=== PATIENT | male | born 1955 | race Caucasian/White ===

== ENCOUNTER → 2017-01-13 | Day surgery (SDC) | payer BC ==
[~2017-01-13] VITALS: Ht 167.6 cm; Wt 59.0 kg
[~2017-01-13] MED LIST: BUPIVACAINE/EPIN 0.25% 30 ML VIAL As Ordered ONE; BUPIVACAINE/EPIN 0.25% 30 ML VIAL XX ONE; GLYCOPYRROLATE INJ 0.2 MG/ML 2 ML VIAL As Ordered ONE; HYDROmorphone HCL 1 MG/ML SYRINGE (J1170) IV PRN; HYDROmorphone HCL 2 MG/ML 1ML VIAL (J1170) As Ordered ONE; KETOROLAC 30 MG/ML VIAL (J1885) IV SCH; KETOROLAC 60 MG/2 ML VIAL (J1885) As Ordered ONE; LIDOCAINE 2% INJ 100 MG/5 ML SDV (FOR ANES.) As Ordered ONE; LR 1,000 ML IV SCH; MIDAZOLAM INJ 2 MG/2 ML VIAL (J2250) As Ordered ONE; MORPHINE 2 MG/ML 1ML SYRINGE IV PRN; NEOSTIGMINE 1MG/ML 5 ML SYRINGE (J2710) As Ordered ONE; NORCO, ANEXSIA 5/325MG TABLET (HYDROcodone/ACETAMINOPHEN) PO PRN; ONDANSETRON 4MG/2ML VIAL (J2405) As Ordered ONE; ONDANSETRON 4MG/2ML VIAL (J2405) IV PRN; PERCOCET 5MG/325MG TAB PO PRN; PHENYLephrine HCL 500 MCG/5 ML (100MCG/ML) SYRINGE (J2370) As Ordered ONE; PROPOFOL 500 MG/50 ML VIAL As Ordered ONE; SUGAMMADEX SODIUM 500 MG/5 ML VIAL (BRIDION) As Ordered ONE; ceFAZolin SOD 1 GM in D5W MINI-BAG PLUS 50 ML IV ONE; dexameTHASONE 4 MG/ML 1ML VIAL (J1100) As Ordered ONE; ePHEDrine SULFATE 25 MG/5 ML(5MG/ML) SYRINGE As Ordered ONE; fentaNYL 100 MCG/2 ML INJECTION (J3010) As Ordered ONE; fentaNYL 100 MCG/2 ML INJECTION (J3010) IV PRN
--- NOTE | 2017-01-13 11:51 | RO ---
DATE OF PROCEDURE: 01/13/2017 PREOPERATIVE DIAGNOSIS: Right inguinal hernia. POSTOPERATIVE DIAGNOSIS: Right femoral hernia. PROCEDURE: Laparoscopic right inguinal/femoral hernia with 3-D Max mesh, (TEPP). SURGEON: Maged Kumar MD [employer]ET [employer]LLER OPERATOR: ANESTHESIA: General endotracheal anesthesia. ESTIMATED BLOOD LOSS: Minimal. FLUIDS: Crystalloid. BRIEF PROCEDURE SUMMARY: The patient was brought to the operating room and was given general anesthesia. After adequate anesthesia and preoperative antibiotics were given, the patient was prepped and draped in sterile fashion. Next, a periumbilical incision was made with skin knife. Blunt dissection was carried down to fascia. Fascia was incised longitudinally with electrocautery and the rectus muscle was incised longitudinally and retracted laterally with finger dissection posterior to the rectus muscle and anterior to the posterior sheath. The preperitoneal space was entered. Balloon dissection was performed in the preperitoneal space and under direct visualization two 5 mm trocars were placed after the stationary balloon was placed at the umbilicus and insufflated to 15 mm of pressure. The posterior aspect of pubis Josué's was taken down with hook cautery and lateral to the internal ring the peritoneum was taken off surrounding fascia with blunt dissection and eventually all the way up to the cord structures itself. It was mobilized off the cord structures using some minimal blunt dissection as well as electrocautery on loose areolar tissue and eventually the peritoneum was delivered off the cord structures in the vas where it dove deep into the pelvis. What was apparent was that there is a possible direct/femoral hernia present and then further dissection revealed that this was a femoral hernia. This was able to be dissected off distally and circumferentially and eventually mobilized out of the femoral canal. Once this was adequately mobilized, the preperitoneal fat was mobilized down off the vessels so that a good valley between the vessels in the bladder was created. A 3-D Max mesh medium was placed in the preperitoneal space, tacked in at pubis Josué's and on the tail of mesh. The preperitoneal space was desufflated under direct visualization. All trocars were removed under direct visualization. #0 Vicryl was used close the fascia at the umbilicus and all incisions were closed with #4-0 Vicryl. Steri-Strips and a dry sterile dressing was applied. The patient was awakened, extubated and brought to the recovery room awake, alert and hemodynamically stable. Sponge and needle counts correct times two.
[2017-01-13 14:10] VITALS: BP 102/64
--- NOTE | 2017-01-13 16:36 | ECGEPIP ---
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 No prior ECG available for comparison at the time of interpretation. Electronically Signed On 01-13-2017 16:35:44 EST by Jorge Jennings
== END | disposition home or self-care (01) ==
LOC: M SDC 07:25
PROVIDERS: ATTEND Surgery
DX: K40.90 Unilateral inguinal hernia, without obstruction or gangrene, not specified as recurrent (principal)
CPT/HCPCS: 49650; 93005; C1781; J0690; J1100; J1170; J1885; J2250; J2370; J2405; J2710; J3010

== ENCOUNTER → 2018-01-18 | Outpatient (CLI) | payer BC | LOC: M EKG 15:36 | DX: Z01.810 Encounter for preprocedural cardiovascular examination (principal); S83.241A Other tear of medial meniscus, current injury, right knee, initial encounter; I10 Essential (primary) hypertension; Y92.89 Other specified places as the place of occurrence of the external cause; Y93.89 Activity, other specified; X58.XXXA Exposure to other specified factors, initial encounter; Y99.8 Other external cause status | CPT/HCPCS: 93005 ==